=== PATIENT | male | born 1995 | race Caucasian/White ===

== ENCOUNTER 2017-02-21 12:41 | Emergency (ER) | payer MEDICAID ==
--- NOTE | 2017-02-21 13:15 | EDPHY ---
H & P Stated Complaint: RECENT TRAVEL, NOW FEVER, RASH, JOINT PAIN HPI/ROS: CHIEF COMPLAINT: Mosquito exposure in [facility] HISTORY OF PRESENT ILLNESS: This patient is a healthy 22 year old male complaining of fever, achiness, and diarrhea following recent travel to [facility] and [place]. He is concerned regarding possible exposure to dengue fever or chikungunya from infected mosquitos. He returned yesterday from his travels after being abroad for seven months. He initially developed these symptoms 6-7 days ago which resolved slightly. Friday, four days ago, the symptoms returned and he developed a high fever of 105 degrees. This persisted through , yesterday. He states he took 250mg of acetaminophen every 12 hours for fever reduction with little relief. He endorsed generalized joint achiness and weakness, pain in is jaw and teeth, and a headache. He did have diarrhea during this time and one episode of vomiting early on in the illness, but attempted to stay hydrated with water and smoothies. He had some lightheadedness. No rash. He denies abdominal pain, cough , sore throat, or urinary complaints. Today, he was been feeling better this morning but is currently feeling slightly achy once more. His last episode of diarrhea was two days ago. No fever at triage. He has not taken antipyretics today. REVIEW OF SYSTEMS: A ten point review of systems was performed and is negative with the exception of the items mentioned in the HPI. - Personal History Current Tetanus/Diphtheria Vaccine: No Current Tetanus Diphtheria and Acellular Pertussis (TDAP): No - Medical/Surgical History PMH: Denies pertinent medical history. Surgical history: Undescended testicle operation at 10 years old. Hx Asthma: No Hx Chronic Respiratory Disease: No Hx Diabetes: No Hx Cardiac Disease: No Hx Renal Disease: No Hx Cirrhosis: No Hx Alcoholism: No Hx HIV/AIDS: No Hx Splenectomy or Spleen Trauma: No - Social History Smoking Status: Former smoker Additional Social History: PCP Dr. Gary Queen. Visited [facility] for 7 months. Nonsmoker. No alcohol use. Here with his mother. - Physical Exam Exam: General Appearance: Alert. Vital signs reviewed and normal. Eyes: Pupils equal and round, no conjunctival injection, no discharge. Anicteric. ENT, Mouth: Mucous membranes are moist, no oropharyngeal erythema or edema. TMs normal. Neck: No lymphadenopathy, supple. No meningismus. Respiratory: Lungs are clear to auscultation; no wheezes, rales, or rhonchi. Cardiovascular: Regular rate and rhythm; no murmur, rub, or gallop. Gastrointestinal: Abdomen is soft and nontender, no masses or organomegaly, bowel sounds normal. Skin: Warm and dry, no rashes on exposed skin, normal color. Back: Nontender to palpation over the thoracolumbar spine. No CVAT. Extremities: No lower extremity edema, no calf tenderness or swelling. Neurological: Alert and oriented. Moving all four extremities easily and equally. Constitutional: Initial Vital Signs Temperature (C) 36.8 C 02/21/17 12:52 Heart Rate 80 02/21/17 12:52 Respiratory Rate 16 02/21/17 12:52 Blood Pressure 112/64 02/21/17 12:52 O2 Sat (%) 96 02/21/17 12:52 O2 Delivery Mode Room Air Allergies/Adverse Reactions: No Known Allergies Allergy (Unverified 02/21/17 12:51) Home Medications: Medication Instructions Recorded NK [No Known Home Meds] 02/21/17 Medical Decision Making ED Course/Re-evaluation: 13:[address] Maxwell, infectious disease specialist. Ordered labs including CBC, basic metabolic panel, dengue fever, and chikengunya. He understands that the dengue and chikengunya will be sent out and he will call for results. Plan to discharge home in good condition. He is well hydrated. He is not febrile today. Followup and return precautions discussed. Patient will call back for lab results and follow up with primary care or infectious disease for recurrent symptoms. The patient and his mother are comfortable with this plan. Differential Diagnosis: Fever in adults including but not limited to pneumonia, urinary tract infection , viral syndrome (in this setting including dengue, zika, and chikengunya-- there is no malaria in the area of his travels), and influenza. Do not suspect influenza as he has had no respiratory symptoms whatsoever. - Data Points Laboratory Results: 02/21/17 02/21/17 14:10 14:10 WBC Pending RBC Pending Hgb Pending Hct Pending MCV Pending MCH Pending MCHC Pending RDW Pending Plt Count Pending MPV Pending Neut % (Auto) Pending Lymph % (Auto) Pending Benzie % (Auto) Pending Eos % (Auto) Pending Baso % (Auto) Pending Nucleat RBC Rel Count Pending Absolute Neuts (auto) Pending Absolute Lymphs (auto) Pending Absolute Monos (auto) Pending Absolute Eos (auto) Pending Absolute Basos (auto) Pending Absolute Nucleated RBC Pending Immature Gran % Pending Immature Gran # Pending Sodium Pending Potassium Pending Chloride Pending Carbon Dioxide Pending Anion Gap Pending BUN Pending Creatinine Pending Estimated GFR Pending Glucose Pending Calcium Pending Departure - Departure Disposition: Home, Routine, Self-Care Clinical Impression: Viral syndrome Condition: Good Instructions: Viral Syndrome (ED) Additional Instructions: 1. Call back for your laboratory results as we discussed. 2. Take Ibuprofen or Acetaminophen as directed below for fever reduction and pain relief. 3. Follow up with your primary care provider for continued management of symptoms. I am referring you to an Infectious Disease specialist as well if you have recurrent symptoms including fever, achiness, joint pain, or rash. 4. Return to the Emergency Department for uncontrollable fever, vomiting, diarrhea, chest pain, shortness of breath, or other worsening of condition. Adult Pain & Fever Control: We recommend Acetaminophen (Tylenol) and Ibuprofen (Motrin,Advil) for pain and fever control. When fever is high or pain severe, both drugs can be used at the same time, but at different intervals. Please note the time differences. Your dose is: Acetaminophen 650mg every 4 to 6 hours Ibuprofen 400mg every 6-8 hours with food Note: do not take Acetaminophen with Hydrocodone (Vicodin, Lortab) or Oxycodone (Percocet). These medications also contain Acetaminophen. No more than 3000mg of Acetaminophen should be taken in 24 hours (for an adult). Referrals: GARY QUEEN [Primary Care Provider] - As per Instructions Camryn Maxwell MD [Medical Doctor] - As per Instructions Report Scribed for: Dee Dee Killian Report Scribed by: Kori Luna Date of Report: 02/21/17 Time of Report: 13:36 Physician Review and Approval Statement: 02/21/17 13:15 Portions of this note were transcribed by the certified court/medical interpreter. I, Dr. Dee Dee Killian, personally performed the history, physical exam, and medical decision- making; and confirmed the accuracy of the information in the transcribed note.
[2017-02-21 14:22] LABS: % IMMATURE GRANULYOCYTES 0.4 % (0.0-1.1); ABSOLUTE IMMATURE GRANULOCYTES 0.02 10^3/uL (0.00-0.10); ADD DIFF? NO; ADD MORPH? NO; ADD SCAN? YES; FRAGMENT RBC FLAG 0 (0-99); HEMATOCRIT 49.1 % (40.0-51.0); HEMOGLOBIN 17.6 g/dL (13.7-17.5); LEFT SHIFT FLG 0 (0-99); LIPEMIA HEMOLYSIS FLAG 90 (0-99); MEAN CELL HEMOGLOBIN 32.5 pg (27.9-34.1); MEAN CELL HEMOGLOBIN CONCENTR. 35.8 g/dL (32.4-36.7); MEAN CELL VOLUME 90.6 fL (81.5-99.8); MEAN PLATELET VOLUME 11.7 fL (8.7-11.7); PLATELET CLUMPS FLAG 0 (0-99); PLATELET COUNT 99 10^3/uL (150-400); RED BLOOD CELL COUNT 5.42 10^6/uL (4.40-6.38)
[2017-02-21 14:25] LABS: ATYPICAL LYMPHOCYTE FLAG 300 (0-99)
[2017-02-21 14:41] LABS: ANION GAP 10 mEq/L (8-16); CALCIUM 9.2 mg/dL (8.5-10.4); CARBON DIOXIDE 24 mEq/l (22-31); CHLORIDE 107 mEq/L (97-110); CREATININE 0.8 mg/dL (0.7-1.3); GLOMERULAR FILTRATION RATE > 60; GLUCOSE 84 mg/dL (70-100); POTASSIUM 3.9 mEq/L (3.5-5.2); SODIUM 141 mEq/L (134-144)
[2017-02-21 14:55] VITALS: BP 126/82; PULSE 70; RESP 15; TEMP 97.5; O2SAT 98
[2017-02-21 15:15] LABS: SCAN POSITIVE
[2017-02-21 15:18] LABS: PLATELET ESTIMATE DECREASED (ADEQ)
[2017-02-25 18:08] LABS: MISCELLANEOUS TEST See Comments
[2017-02-26 13:12] LABS: DENGUE FEVER AB IGG Positive (Negative); DENGUE FEVER AB IGM Positive (Negative); INTERPRETATION See Comments
== END 2017-02-21 14:50 | disposition home or self-care (01) ==
DX: B34.9 Viral infection, unspecified (principal); Z87.891 Personal history of nicotine dependence
CPT/HCPCS: 86790-90